=== PATIENT | female | born 1950 | race Two or more races ===

== ENCOUNTER → 2024-01-17 | Outpatient (CLI) | payer MEDICARE, MEDICAID, SELFPAY ==
--- NOTE | 2024-01-17 | XR_ITS ---
Examination: PA lateral chest 2 views TECHNIQUE: Upright PA lateral chest 2 views Exam date and time: January 17, 2024 1233 hours Comparison 11/11/2021 INDICATIONS: Fever nausea decreased appetite beginning 3 weeks ago, history coccidioidomycosis FINDINGS: Stable bilateral linear parenchymal scarring Minimal prominence left ventricle No interval pneumonia or pulmonary edema Severe osteopenia with chronic osteoporotic compressions thoracic vertebral bodies with to kyphoplasties IMPRESSION: No pneumonia identified
== END | disposition home or self-care (01) ==
PROVIDERS: PCP Nurse Practitioner Family; Referring Provider Nurse Practitioner Family; Visit Provider Nurse Practitioner Family
DX: R50.9 Fever, unspecified (principal)
CPT/HCPCS: 71046

== ENCOUNTER → 2024-03-11 | Outpatient (CLI) | payer MEDICARE, MEDICAID, SELFPAY ==
[2024-03-11 11:48] LABS: Alanine Aminotransferase 12 U/L (10-49); Albumin, Serum 4.2 gm/dL (3.4-4.8); Albumin/Globulin Ratio 1.6 (1.2-2.2); Alkaline Phosphatase 69 U/L (46-116); Anion Gap 8 (7-16); Aspartate Amino Transferase 23 U/L (0-34); BUN/Creatinine Ratio 23 Ratio (12-20); Bilirubin,Total 0.5 mg/dL (0.3-1.2); Blood Urea Nitrogen 23 mg/dL (9-23); Calcium 9.6 mg/dL (8.3-10.6); Calcium (Corrected) 9.6 mg/dL (8.5-10.1); Carbon Dioxide 30.6 mMol/L (20.0-31.0); Chloride 104 mMol/L (98-107); Globulin 2.6 gm/dL (2.3-3.5); Glucose 102 mg/dL (74-106); Osmolality,Calculated 288 (275-295); Phosphorous 2.7 mg/dL (2.4-5.1); Potassium 3.8 mMol/L (3.4-5.1); Sodium 143 mMol/L (136-145); Total Protein 6.8 gm/dL (5.7-8.2); eGFR 58 See Note
== END | disposition home or self-care (01) ==
LOC: COPL 10:37
PROVIDERS: PCP Nurse Practitioner Family; Referring Provider Physician Assistant Medical; Visit Provider Physician Assistant Medical
DX: E61.1 Iron deficiency (principal); E78.00 Pure hypercholesterolemia, unspecified; M48.54XS Collapsed vertebra, not elsewhere classified, thoracic region, sequela of fracture; M48.57XS Collapsed vertebra, not elsewhere classified, lumbosacral region, sequela of fracture; M54.50 Low back pain, unspecified; M81.0 Age-related osteoporosis without current pathological fracture; Z98.0 Intestinal bypass and anastomosis status; Z98.84 Bariatric surgery status
CPT/HCPCS: 36415; 80053; 83735; 84100

== ENCOUNTER → 2024-03-26 | Outpatient (CLI) | payer MEDICARE, MEDICAID, SELFPAY ==
--- NOTE | 2024-03-26 10:37 | XR_ITS ---
Examination: PA lateral chest 2 views TECHNIQUE: Upright PA lateral chest 2 views Exam date and time: March 26, 2024 1126 hours Comparison January 17, 2024 INDICATIONS: Coughing beginning 5 days ago FINDINGS: Normal heart size Subsegmental atelectasis right and left lower lung zones Mild elevation right hemidiaphragm Severe osteopenia stable compression fractures, chronic dorsal vertebral bodies with kyphoplasty No pneumonia or pulmonary edema IMPRESSION: Bilateral subsegmental atelectasis No pneumonia or pulmonary edema
== END | disposition home or self-care (01) ==
PROVIDERS: PCP Nurse Practitioner Family; Referring Provider Nurse Practitioner Family; Visit Provider Nurse Practitioner Family
DX: J98.11 Atelectasis (principal)
CPT/HCPCS: 71046

== ENCOUNTER → 2024-04-18 | Outpatient (CLI) | payer MEDICARE, MEDICAID, SELFPAY ==
--- NOTE | 2024-04-18 10:13 | XR_ITS ---
Examination: Knee, right , 3 views Technique: Knee AP, lateral, oblique 3 views Date and time of exam: April 18, 2024 1110 hours INDICATIONS: Right knee pain beginning one week ago. FINDINGS: Moderate osteopenia. Total right knee arthroplasty. Satisfactory alignment. No loosening of the prosthetic components. No fracture IMPRESSION: Total right knee arthroplasty with satisfactory alignment
[2024-04-18 12:58] LABS: Basophils % (Auto) 0 % (0-2.5); Eosinophils # (Auto) 0.1 Thou/mm3 (0.0-0.5); Eosinophils % (Auto) 2 % (0-10); Hematocrit 39.1 % (36.0-46.0); Immature Granulocytes % (Auto) 0 % (0-0); Immature Granulocytes Auto 0.02 Thou/mm3 (0.00-0.00); Lymphocytes # (Auto) 1.8 Thou/mm3 (1.0-4.8); Lymphocytes % (Auto) 24 % (10-50); Mean Corpuscular HGB Conc 33.2 g/dl (31.0-37.0); Mean Corpuscular Hemoglobin 27.7 pg (25.0-35.0); Mean Corpuscular Volume 83 fL (80-100); Monocytes # (Auto) 0.6 Thou/mm3 (0.0-0.8); Monocytes % (Auto) 8 % (0-12); Neutrophils % (Auto) 66 % (37-80); Nucleated Red Blood Cell % 0 /100 WBC (0); Platelet Count 293 Thou/mm3 (140-440); RDW Standard Deviation 43.7 fL (36.4-46.3); White Blood Count 7.6 Thou/mm3 (3.6-11.0)
[2024-04-18 13:03] LABS: Glucose Estimated Average 117 mg/dL (80-131); Hemoglobin A1C 5.7 % Hgb (4.8-6.0)
[2024-04-18 13:12] LABS: Alanine Aminotransferase 12 U/L (10-49); Albumin, Serum 4.1 gm/dL (3.4-4.8); Albumin/Globulin Ratio 1.6 (1.2-2.2); Alkaline Phosphatase 62 U/L (46-116); Anion Gap 9 (7-16); Aspartate Amino Transferase 19 U/L (0-34); BUN/Creatinine Ratio 15 Ratio (12-20); Bilirubin,Total 0.9 mg/dL (0.3-1.2); Blood Urea Nitrogen 16 mg/dL (9-23); Calcium 9.3 mg/dL (8.3-10.6); Calcium (Corrected) 9.3 mg/dL (8.5-10.1); Cardiac Risk Estimate 4.5 RATIO (3.7-5.6); Chloride 105 mMol/L (98-107); Cholesterol 139 mg/dL (132-200); Creatinine (Component) 1.1 mg/dL (0.6-1.3); Globulin 2.6 gm/dL (2.3-3.5); Glucose 103 mg/dL (74-106); HDL Cholesterol 31 mg/dL (40-60); LDL Cholesterol,Calculated 85 mg/dL (0-130); Osmolality,Calculated 282 (275-295); Potassium 3.4 mMol/L (3.4-5.1); Sodium 141 mMol/L (136-145); Total Protein 6.7 gm/dL (5.7-8.2); Triglycerides 116 mg/dL (30-150); eGFR 52 See Note
[2024-04-18 13:15] LABS: Vitamin D 25 Hydroxy Total 78.6 ng/mL (7.3-40.2)
[2024-04-18 13:17] LABS: Ferritin 105 ng/mL (7.3-270.7); Iron 38 mcg/dL (50-170); Percent Iron Saturation 13 % (20-55); Total Iron Binding Capacity 280 mcg/dL (250-425); Unsaturated Iron Binding 242 (225-295)
== END | disposition home or self-care (01) ==
LOC: CDIM 09:58 → COPL 11:26
PROVIDERS: Referring Provider Nurse Practitioner Family; Visit Provider Radiology Diagnostic Radiology
DX: M25.561 Pain in right knee (principal); Z96.651 Presence of right artificial knee joint; R73.03 Prediabetes; E55.9 Vitamin D deficiency, unspecified; Z13.89 Encounter for screening for other disorder; Z13.220 Encounter for screening for lipoid disorders
CPT/HCPCS: 36415; 73562; 80053; 80061; 82306; 82728; 83036; 83540; 83550; 85025

== ENCOUNTER → 2024-05-07 | Outpatient (CLI) | payer MEDICARE, MEDICAID, SELFPAY ==
--- NOTE | 2024-05-07 10:30 | XR_ITS ---
EXAMINATION: MR knee RT wo con ORDERING PROVIDER: Zahida Morales NP HISTORY: Diffuse right knee pain x6 weeks radiating down leg with walking, numbness, tingling, and swelling. TECHNIQUE: Multiplanar multisequence magnetic resonance images were obtained of the right knee without contrast. Institutional metal reduction protocols were utilized. COMPARISON: 04/18/2024, right knee radiographs. FINDINGS: Status post right knee arthroplasty. Significant metal susceptibility artifact limits evaluation. Medial and lateral supporting structures are grossly intact. There is a mild amount of increased signal within the distal quadriceps tendon in the setting of known small enthesophytes. No large fluid collections are identified. Bone marrow signal is grossly unremarkable. There is some mild to moderate muscular atrophy, with fatty infiltration. Surrounding soft tissues are otherwise within normal limits. IMPRESSION: 1. Status post knee arthroplasty with metal susceptibility artifact. 2. Mild quadriceps tendinopathy in the setting of known enthesophytes.
== END | disposition home or self-care (01) ==
LOC: SMRI 10:00
PROVIDERS: PCP Nurse Practitioner Family; Referring Provider Nurse Practitioner Family; Visit Provider Nurse Practitioner Family
DX: M25.561 Pain in right knee (principal); Z96.651 Presence of right artificial knee joint
CPT/HCPCS: 73721

== ENCOUNTER → 2024-07-05 | Outpatient (CLI) | payer MEDICARE, MEDICAID, SELFPAY ==
[2024-07-05 10:29] LABS: Alanine Aminotransferase 8 U/L (10-49); Albumin, Serum 4.2 gm/dL (3.4-4.8); Albumin/Globulin Ratio 1.8 (1.2-2.2); Alkaline Phosphatase 65 U/L (46-116); Anion Gap 8 (7-16); Aspartate Amino Transferase 17 U/L (0-34); BUN/Creatinine Ratio 15 Ratio (12-20); Bilirubin,Total 0.6 mg/dL (0.3-1.2); Blood Urea Nitrogen 20 mg/dL (9-23); Carbon Dioxide 28.8 mMol/L (20.0-31.0); Chloride 106 mMol/L (98-107); Creatinine (Component) 1.3 mg/dL (0.6-1.3); Globulin 2.4 gm/dL (2.3-3.5); Glucose 101 mg/dL (74-106); Osmolality,Calculated 287 (275-295); Potassium 3.8 mMol/L (3.4-5.1); Sodium 143 mMol/L (136-145); Total Protein 6.6 gm/dL (5.7-8.2); eGFR 43 See Note
== END | disposition home or self-care (01) ==
LOC: COPL 08:59
PROVIDERS: PCP Nurse Practitioner Family; Referring Provider Physician Assistant Medical; Visit Provider Physician Assistant Medical
DX: E61.1 Iron deficiency (principal); E78.00 Pure hypercholesterolemia, unspecified; M81.0 Age-related osteoporosis without current pathological fracture; Z98.0 Intestinal bypass and anastomosis status; Z98.84 Bariatric surgery status
CPT/HCPCS: 36415; 80053

== ENCOUNTER → 2024-09-02 | Outpatient (CLI) | payer MEDICARE, MEDICAID, SELFPAY ==
--- NOTE | 2024-09-02 10:10 | XR_ITS ---
Examination: Cervical spine 3 views Technique one AP lateral coned AP odontoid cervical spine 3 views Date and time: September 02, 2024 1018 hours INDICATIONS: Neck pain one week. FINDINGS: Adequate alignment cervical vertebral bodies. No cervical fracture. Intact odontoid. Severe osteopenia. Moderate degenerative disc disease C5-C6, C6-C7 IMPRESSION: Moderate degenerative disc disease C5-C6, C6-C7
== END | disposition home or self-care (01) ==
PROVIDERS: PCP Nurse Practitioner Family; Referring Provider Nurse Practitioner Family; Visit Provider Nurse Practitioner Family
DX: M50.322 Other cervical disc degeneration at C5-C6 level (principal)
CPT/HCPCS: 72040

== ENCOUNTER → 2024-09-27 | Outpatient (CLI) | payer MEDICARE, MEDICAID, SELFPAY ==
[2024-09-27 15:38] LABS: Basophils # (Auto) 0.0 Thou/mm3 (0.0-0.2); Basophils % (Auto) 1 % (0-2.5); Eosinophils # (Auto) 0.2 Thou/mm3 (0.0-0.5); Eosinophils % (Auto) 4 % (0-10); Hematocrit 38.8 % (36.0-46.0); Hemoglobin 12.6 g/dL (12.0-16.0); Immature Granulocytes Auto 0.01 Thou/mm3 (0.00-0.00); Lymphocytes # (Auto) 1.2 Thou/mm3 (1.0-4.8); Lymphocytes % (Auto) 23 % (10-50); Mean Corpuscular HGB Conc 32.5 g/dl (31.0-37.0); Mean Corpuscular Hemoglobin 28.3 pg (25.0-35.0); Mean Corpuscular Volume 87 fL (80-100); Monocytes # (Auto) 0.5 Thou/mm3 (0.0-0.8); Monocytes % (Auto) 10 % (0-12); Neutrophils # (Auto) 3.4 Thou/mm3 (1.8-7.7); Neutrophils % (Auto) 63 % (37-80); Nucleated Red Blood Cell # 0.00 Thou/mm3 (0.00-0.00); Nucleated Red Blood Cell % 0 /100 WBC (0); Platelet Count 357 Thou/mm3 (140-440); RDW Standard Deviation 44.9 fL (36.4-46.3); Red Blood Count 4.46 Miln/mm3 (4.00-5.20); White Blood Count 5.5 Thou/mm3 (3.6-11.0)
[2024-09-27 16:59] LABS: Alanine Aminotransferase 8 U/L (10-49); Albumin, Serum 4.1 gm/dL (3.4-4.8); Albumin/Globulin Ratio 1.5 (1.2-2.2); Alkaline Phosphatase 77 U/L (46-116); Anion Gap 13 (7-16); Aspartate Amino Transferase 21 U/L (0-34); BUN/Creatinine Ratio 16 Ratio (12-20); Bilirubin,Total 0.5 mg/dL (0.3-1.2); Blood Urea Nitrogen 19 mg/dL (9-23); Calcium 9.4 mg/dL (8.3-10.6); Calcium (Corrected) 9.4 mg/dL (8.5-10.1); Carbon Dioxide 25.5 mMol/L (20.0-31.0); Chloride 104 mMol/L (98-107); Creatinine (Component) 1.2 mg/dL (0.6-1.3); Globulin 2.7 gm/dL (2.3-3.5); Glucose 95 mg/dL (74-106); Osmolality,Calculated 285 (275-295); Potassium 3.8 mMol/L (3.4-5.1); Sodium 142 mMol/L (136-145); Total Protein 6.8 gm/dL (5.7-8.2); eGFR 47 See Note
== END | disposition home or self-care (01) ==
LOC: COPL 14:15
PROVIDERS: PCP Family Medicine; Referring Provider Physician Assistant Medical; Visit Provider Physician Assistant Medical
DX: M81.0 Age-related osteoporosis without current pathological fracture (principal); Z79.899 Other long term (current) drug therapy
CPT/HCPCS: 36415; 80053; 85025

== ENCOUNTER → 2024-12-10 | Outpatient (CLI) | payer MEDICARE, MEDICAID, SELFPAY ==
[2024-12-10 13:00] LABS: Misc Send Out* See Sep Rpt
[2024-12-10 13:59] LABS: Basophils # (Auto) 0.0 Thou/mm3 (0.0-0.2); Basophils % (Auto) 0 % (0-2.5); Eosinophils # (Auto) 0.1 Thou/mm3 (0.0-0.5); Eosinophils % (Auto) 2 % (0-10); Hematocrit 39.2 % (36.0-46.0); Hemoglobin 12.2 g/dL (12.0-16.0); Immature Granulocytes Auto 0.01 Thou/mm3 (0.00-0.00); Lymphocytes # (Auto) 1.4 Thou/mm3 (1.0-4.8); Lymphocytes % (Auto) 27 % (10-50); Mean Corpuscular HGB Conc 31.1 g/dl (31.0-37.0); Mean Corpuscular Hemoglobin 28.2 pg (25.0-35.0); Mean Corpuscular Volume 91 fL (80-100); Monocytes # (Auto) 0.4 Thou/mm3 (0.0-0.8); Monocytes % (Auto) 8 % (0-12); Neutrophils # (Auto) 3.1 Thou/mm3 (1.8-7.7); Neutrophils % (Auto) 62 % (37-80); Nucleated Red Blood Cell # 0.00 Thou/mm3 (0.00-0.00); Nucleated Red Blood Cell % 0 /100 WBC (0); Platelet Count 299 Thou/mm3 (140-440); RDW Standard Deviation 46.2 fL (36.4-46.3); Red Blood Count 4.33 Miln/mm3 (4.00-5.20); White Blood Count 5.0 Thou/mm3 (3.6-11.0)
[2024-12-10 14:30] LABS: Anion Gap 11 (7-16); BUN/Creatinine Ratio 16 Ratio (12-20); Blood Urea Nitrogen 16 mg/dL (9-23); Carbon Dioxide 30.6 mMol/L (20.0-31.0); Chloride 101 mMol/L (98-107); Creatinine (Component) 1.0 mg/dL (0.6-1.3); Glucose 85 mg/dL (74-106); Potassium 3.4 mMol/L (3.4-5.1); Sodium 143 mMol/L (136-145); eGFR 58 See Note
[2024-12-10 14:31] LABS: Alanine Aminotransferase 8 U/L (10-49); Albumin, Serum 4.1 gm/dL (3.4-4.8); Albumin/Globulin Ratio 1.8 (1.2-2.2); Alkaline Phosphatase 61 U/L (46-116); Aspartate Amino Transferase 20 U/L (0-34); Bilirubin,Total 0.3 mg/dL (0.3-1.2); Calcium 9.1 mg/dL (8.3-10.6); Calcium (Corrected) 9.1 mg/dL (8.5-10.1); Globulin 2.3 gm/dL (2.3-3.5); Osmolality,Calculated 285 (275-295); Total Protein 6.4 gm/dL (5.7-8.2)
== END | disposition home or self-care (01) ==
LOC: COPL 12:43
PROVIDERS: PCP Nurse Practitioner Family; Referring Provider Internal Medicine; Visit Provider Internal Medicine
DX: M54.50 Low back pain, unspecified (principal); M81.0 Age-related osteoporosis without current pathological fracture; Z79.899 Other long term (current) drug therapy
CPT/HCPCS: 36415; 80053; 85025

== ENCOUNTER 2025-01-07 21:57 | Emergency (ER) | payer MEDICARE, MEDICAID, SELFPAY ==
[2025-01-07 21:58] VITALS: BMI 26.9
[2025-01-07 23:03] VITALS: BP 136/76; PULSE 70; RESP 20; TEMP 36.6; O2SAT 95
--- NOTE | 2025-01-07 23:14 | XR_ITS ---
Examination: CT abdomen and pelvis without contrast. Coronal 3-D reconstructions. Sagittal 2-D reconstructions. Date and time of exam: January 08, 2025, 0052 hours, comparison May 18, 2020 INDICATIONS: Left-sided flank pain onset today CTDI: vol (mGy): 8.39 DLP: (mGycm): 441 Technique: Axial images of the abdomen have been obtained, 3 mm slice thickness Intravenous contrast material has not been administered. Low dose protocols were performed. One or more of the following dose reduction techniques were used; automated exposure control, adjustment of the mA and/or KV according to patient size, use of iterative reconstruction technique. Findings: Mitral valvular calcification No focal liver or splenic lesion Absent gallbladder No pancreatic or adrenal mass Moderate renal parenchymal scar formation 1 to 2 mm bilateral renal calculi, no hydronephrosis or ureteral calculi Aorta normal size Normal appendix No bowel obstruction No diverticulitis Absent uterus No pelvic mass No bladder calculi Severe osteopenia with chronic osteoporotic compressions L1 T12, T7 kyphoplasties T12 T7 IMPRESSION: Tiny nonobstructing bilateral renal calculi, no hydronephrosis or ureteral calculi
--- NOTE | 2025-01-07 23:15 | PD.EDRME ---
Rapid Medical Screening Exam RME Arrival date/time: 01/07/25 21:57 Chief Complaint: Abdominal Pain Time Seen by Provider: 01/07/25 22:30 Vital signs: Vital Signs Temperature 98 F 01/07/25 23:03 Pulse Rate 70 01/07/25 23:03 Respiratory Rate 20 01/07/25 23:03 Blood Pressure 136/76 H 01/07/25 23:03 Pulse Oximetry (%) 95 01/07/25 23:03 Oxygen Delivery Method Room Air 01/07/25 23:03 RME Narrative: 74-year-old female complaining of left lower quadrant pain since last night. I briefly performed a screening evaluation to initiate work-up and expedite care. Complete history, physical exam, and plan of care is deferred to the provider in the main ED. Exam: Constitutional: Vital Signs Reviewed. Well appearing. No acute distress. Not toxic appearing. Head: Normocephalic, atraumatic. Eyes: Conjunctiva clear. ENT: Mucous membranes moist. Neck: Trachea midline. Normal range of motion. No nuchal rigidity. Respiratory: Normal effort. No respiratory distress or accessory muscle use. Neuro: Alert and oriented. Speech normal. No focal gross motor or sensory deficits observed. Skin: Warm, dry, normal color. Psych: Pleasant. Normal affect. Cooperative. Clinical Impression: Abdominal pain unspecified
[2025-01-07] MEDS: ONDANSETRON ODT 4 MG TABRAP PO (23:21)
[2025-01-08 00:02] LABS: Collection Type, Urine Voided
[2025-01-08 00:07] VITALS: BP 137/64; PULSE 80; RESP 19; TEMP 36.5; O2SAT 96
--- NOTE | 2025-01-08 00:09 | PD.EDABDPN ---
ED Abdominal Pain RME/HPI General Chief Complaint: Abdominal Pain Stated complaint: LEFT SIDED ABD PAIN Time seen by provider: 01/07/25 22:30 Arrival date/time: 01/07/25 21:57 RME / HPI RME / HPI narrative: 74-year-old female complaining of left lower quadrant pain since last night. I briefly performed a screening evaluation to initiate work-up and expedite care. Complete history, physical exam, and plan of care is deferred to the provider in the main ED. Dr. Ayala?s Main ED Evaluation: 74yo female with known history of DM, HTN, HLD presenting with epigastric pain that radiates to LUQ x 24 hours. It has been constant, waxing and weaning, and is described as pressure-like sensation. Patient has nausea, but no vomiting. No frequency, urgency, or dysuria. No fever or chills. No hematochezia or melena. PSH includes hysterectomy and cholecystectomy. Social history unremarkable. NKA. Related Data Home Medications ?Medication ?Instructions ?Recorded ?Confirmed pravastatin 10 mg tablet 10 mg PO HS ##0 07/12/13 06/08/20 cyclobenzaprine 10 mg tablet 10 mg PO HS #0 tabs 08/22/15 06/08/20 calcium carbonate (Calcium 600) 600 mg PO DAILY 07/13/18 06/08/20 cholecalciferol (vitamin D3) 125 5,000 unit PO QDAY 07/13/18 06/08/20 mcg (5,000 unit) tablet (Vitamin D3) meclizine 25 mg tablet 25 mg PO BID PRN Vertigo 07/13/18 06/08/20 sertraline 100 mg tablet 100 mg PO QDAY 07/13/18 06/08/20 hydrochlorothiazide 12.5 mg tablet 12.5 mg PO QDAY 05/08/19 06/08/20 atenolol 25 mg tablet 25 mg PO QDAY 05/09/19 06/08/20 loratadine 10 mg tablet 10 mg PO QDAY 05/09/19 06/08/20 diclofenac sodium 75 mg 75 mg PO BID 06/05/20 06/08/20 tablet,delayed release Previous Rx's ?Medication ?Instructions ?Recorded acetaminophen 300 mg-codeine 15 mg 1 tab PO Q8H PRN pain #14 tabs 01/08/25 tablet amoxicillin 500 mg-potassium 1 tab PO TID 10 days #30 tabs 01/08/25 clavulanate 125 mg tablet (Augmentin) promethazine 12.5 mg tablet 12.5 mg PO TID PRN nausea and 01/08/25 vomiting #14 tabs Allergies Allergy/AdvReac Type Severity Reaction Status Date / Time No Known Allergies Allergy Verified 01/07/25 21:58 Review of Systems Review of Systems Systems Reviewed: All systems reviewed, normal except as documented Past Medical History Past Medical History NEUROLOGIC: Negative Neurological Disorders or Seizures CARDIAC: Positive Cardiac Disorders, Hypercholesterolemia (PO MED), Hypertension (PO MED) and Varicose Veins; Negative Congestive Heart Failure or Edema RESPIRATORY: Negative Chronic Obstructive Pulmonary Disease (COPD), Tuberculosis or Sleep Apnea GASTROINTESTINAL: Positive Gastrointestinal Disorders and Gall Bladder Disease (LAP Zainab); Negative Hepatitis GENITOURINARY: Positive Genitourinary Disorders (Overactive bladder, urine leakage); Negative Renal Disease REPRODUCTIVE: Positive Previous Pregnancies () MUSCULOSKELETAL: Positive Musculoskeletal Disorders, Arthritis (generalized) and Degenerative Disk Disease ENDOCRINE: Positive Endocrine Disorders and Diabetes Mellitus Type 2 (Stopped Metformin 2016, diet controlled); Negative Diabetes Mellitus Type 1 HEMATOLOGIC: Negative Blood Disorders, Anemia, Leukemia, Hemophilia, Thalassemia, Sickle Cell Disease or Clotting Problems PSYCHO/SOCIAL: Positive Depression (PO MEDS) OTHER HISTORY: Positive Chicken Pox and Measles; Negative Hospitalization, Autoimmune Disease, Down Syndrome, Developmental Delay, Shingles, Falls, Blood Transfusions, Blood Transfusion Reaction, Anesthesia Reactions, Organ Transplant, Chemotherapy, Radiation Therapy, Hyperbaric Therapy, MRSA, VRSA, Vancomycin-Resistant Enterococci, Human Immunodeficiency Virus (HIV), Mumps, Rubella (Irish Measles), Pertussis, Clostridium Difficile or Cancer Family History FAMILY HISTORY: Positive Family Psychiatric Problems (Mother (Depression)), Family Cardiac Disorders (Mother (AR) Mother, Father (HTN)), Family Cancer (Father (Bones)) and Family Surgery (Sister); Negative Family Respiratory Disorders, Family Gastrointestinal Problems or Family Anesthesia Reaction Surgical History SURGICAL: Positive Abdominal Surgery, Joint Replacement (Bilateral Knees) and Tubal Ligation; Negative Organ Transplant Social History SMOKING STATUS: Never smoker SECOND HAND EXPOSURE: No ED Exam Narrative Physical exam: GENERAL APPEARANCE: alert and oriented x 4, well-developed, well-nourished, complains of LUQ pain, no acute distress VITALS: All vitals were reviewed and the pulse ox is 96% on room air, which is normal according to my interpretation. HEENT: Normocephalic, atraumatic; pupils equal, round, reactive to light; EOMI; mucous membranes pink, moist; oropharynx clear NECK: Supple LUNGS: CTABL; no wheezes, no rales, no rhonchi HEART: Regular rate, regular rhythm; normal S1, S2; no murmurs ABDOMEN: non distended; soft, LUQ tenderness with guarding EXTREMITIES: atraumatic; no edema NEUROLOGIC: awake; alert and oriented x4; cranial nerves II-XII grossly intact; no focal sensory or motor deficits PSYCHIATRIC: appropriate mood and affect SKIN: warm, dry, normal color; no rashes Course Quality Measures none Orders Category Date Time Status CT abdomen pelvis wo con Stat Exams 01/07/25 23:14 Taken CBC Stat Lab 01/07/25 23:26 Completed CMP [Comprehensive Metabolic Panel] Stat Lab 01/07/25 23:26 Completed Lipase Stat Lab 01/07/25 23:26 Completed UA, C/S IF [Urinalysis, C/S if Indicated] Stat Lab 01/07/25 23:50 Completed Urine Culture Stat Lab 01/07/25 23:50 Received Ampicillin/Sulbac Inj [Unasyn Inj] 3 gm Med 01/08/25 02:42 Ordered Sodium Chloride 0.9% (Pop) [NS 0.9% mini bag] 100 ml IV X1 Ondansetron Odt [Zofran Odt] Med 01/07/25 23:14 Discontinued 4 mg PO X1 ONE Vital Signs Vital signs: Vital Signs Temperature 98 F 01/07/25 23:03 Pulse Rate 70 01/07/25 23:03 Respiratory Rate 20 01/07/25 23:03 Blood Pressure 136/76 H 01/07/25 23:03 Pulse Oximetry (%) 95 01/07/25 23:03 Oxygen Delivery Method Room Air 01/07/25 23:03 Abdominal Pain MDM MDM Narrative MDM Narrative:: Scribe Attestation: 01/08/25 - Angelika Hull am scribing for and in the presence of Dr. Ayala. 74yo female with known history of DM, HTN, HLD presenting with epigastric pain that radiates to LUQ x 24 hours. It has been constant, waxing and weaning, and is described as pressure-like sensation. Please see PE findings. Labs including CBC and chemistries are unremarkable. UA with equivocal evidence of infection. This may partly explain patient's left flank pain. CT abdomen pelvis shows either contracted vs mildly inflamed anorectal region, possibly consistent with proctitis. Patient has been straining fairly frequently, but denies rectal pain. After extended period of observation, patient is considered stable for discharge. Patient will be treated empirically with Augmentin, antiemetics, and analgesics with close follow-up anticipated. Patient data External records reviewed:: [facility] previous records (Per chart review, patient has no relevant previous ED visits.) Clinical information provided by:: patient Social determinants that could affect healthcare access:: none Patient has the following chronic illnesses:: HTN, HLD How is presenting disease/condition affected by chronic disease/condition?: uneffected by Evaluation data The following diagnostics were reviewed and interpreted by me:: lab results and radiology exam(s) Lab and/or radiology exams considered but not ordered:: none Interpretation Summary: CT scan of the abdomen and pelvis without intravenous contrast (axial sections with sagittal and coronal reformats); January 08, 2025 , 00:51 hours ? Clinical History:?Flank pain. Comparison:?No prior study available for comparison at the time of interpretation. ? Findings: There are multiple 1-2 mm nonobstructing bilateral renal calculi. There is no ureteric calculus or hydroureteronephrosis. The gallbladder is surgically absent. The liver, spleen, adrenals, and pancreas are unremarkable on this noncontrast study. ? There are chronic postoperative changes in the stomach. No evidence of bowel obstruction. There is mild thickening versus underdistention of the anorectal junction/anal verge with mild adjacent fat stranding. The appendix is within normal limits (coronal images 78-82/141). The abdominal aorta demonstrates mild atheromatous changes.? ? The urinary bladder is partially distended and shows mild wall thickening; possibility of cystitis cannot be excluded. Calcific densities are seen in the pelvis, likely representing phleboliths. The uterus is surgically absent. No evidence of adnexal mass. There is no free fluid or free air. ? There is diffuse osteopenia. Degenerative changes are seen in the spine. There are chronic compression fractures of T11, T12, and T7 vertebral bodies with vertebroplasty changes. ? Subsegmental atelectasis is seen at the visualized lung bases with mild heterogeneous attenuation. There is no pleural effusion. ? Please note that evaluation of soft tissue/vascular structures and bowel loops is limited due to absence of IV and oral contrast. ? Impression: 1.?No evidence of acute appendicitis. 2.?Nonobstructing (1-2 mm) bilateral renal calculi. No ureteric calculus or hydroureteronephrosis. 3.?Mild thickening versus underdistention of the anorectal junction/anal verge with mild adjacent fat stranding, suspicious for inflammatory or infectious etiology. 4. Partially distended urinary bladder with mild wall thickening; possibility of cystitis cannot be excluded. 5. Other findings as described above This report has been electronically signed by: Klever Figueroa MD. Medications / Prescriptions Medications or Prescriptions considered but not ordered:: none Medication administrations:: Medication Administration History Ampicillin Sodium/Sulbactam (Sodium 3 gm/ Sodium Chloride) 100 mls @ 200 mls/hr IV X1 ONE Stop: 01/08/25 02:43 Discontinued Medications Ondansetron HCl (Ondansetron Odt 4 Mg Tabrap) 4 mg PO X1 ONE; Protocol Stop: 01/07/25 23:15 Last Admin: 01/07/25 23:21 Dose: 4 mg Documented By: see above Consultations Consultation(s) initiated? (list below): No Diagnosis Differential diagnosis abdominal pain: constipation, diverticulitis, pancreatitis and other (gastritis, GERD, kidney stone) Most likely diagnosis given after review of the tests above:: see clinical impression below Admission Indicated Admission indicated?: not indicated Admission Request Was there a request for admission?: No Disposition Plan Disposition Plan: Discharge Discharge Attestation Discharge Attestation: The patient and all family members were given an opportunity to ask questions and understood the discharge instructions. Discharge instructions specifically effects, indications for sooner follow up or return to the emergency department, and the expected course of current diagnosis. Patient condition: Stable Discharge Plan Plan Patient Disposition: HOME (Self Care) Discharge Disposition comment: Stable Prescriptions/Referrals Prescriptions/Med Rec: New amoxicillin-pot clavulanate [Augmentin] 500-125 mg tablet 1 tab PO TID 10 Days Qty: 30 0RF promethazine 12.5 mg tablet 12.5 mg PO TID PRN (Reason: nausea and vomiting) Qty: 14 0RF acetaminophen-codeine 300-15 mg tablet 1 tab PO Q8H PRN (Reason: pain) Qty: 14 0RF No Action pravastatin 10 mg Tablet 10 mg PO HS Qty: 0 cyclobenzaprine 10 mg Tablet 10 mg PO HS Qty: 0 diclofenac sodium 75 mg Tablet,Delayed Release (Dr/Ec) 75 mg PO BID sertraline 100 mg Tablet 100 mg PO QDAY calcium carbonate [Calcium 600] 600 mg calcium (1,500 mg) Tablet 600 mg PO DAILY meclizine 25 mg Tablet 25 mg PO BID PRN (Reason: Vertigo) cholecalciferol (vitamin D3) [Vitamin D3] 5,000 unit Tablet 5,000 unit PO QDAY hydrochlorothiazide 12.5 mg Tablet 12.5 mg PO QDAY atenolol 25 mg tablet 25 mg PO QDAY loratadine 10 mg Tablet 10 mg PO QDAY Referrals: Zahida Morales T[employer] CUTTER [Primary Care Provider] - In 1 week Problem List Clinical Impression: Acute UTI (urinary tract infection), Acute proctitis Patient/Caregiver Discharge Instructions Discharge Activity: activity as tolerated Education Materials: ED CYSTITIS Female Adult Additional Instructions: Force fluids/clear liquid diet for 24 to 48 hours and advance as tolerated. Medication as directed. Follow-up with primary care doctor in 5 to 7 days and return for fever persistent vomiting escalating abdominal pain or worsening illness. Print Language: Swedish Stand Alone Forms: [facility] Award Info., Patient Portal Info Letter
[2025-01-08 00:15] LABS: Bacteria,Urine Rare; Bilirubin,Urine Negative (Negative); Blood,Urine Negative (Negative); Clarity,Urine Clear (Clear/Hazy); Color,Urine Yellow (Lt Yel-Yel); Culture Indicated,Urine Yes; Glucose, Urine Negative (Negative); Ketones,Urine 1+ (Negative); Leukocyte Esterase,Urine Positive (Negative); Nitrite,Urine Negative (Negative); PH,Urine 7.5 (5.0-7.0); Protein,Urine Negative (Neg - Trace); RBC,Urine 10 /hpf (0-3); Specific Gravity,Urine 1.021 (1.001-1.035); Squamous Epithelial Cell,Urine 1 /hpf (0-5); Urobilinogen,Urine Negative mg/dL (0.0-1.0); WBC,Urine 48 /hpf (0-5)
[2025-01-08 00:23] LABS: Basophils # (Auto) 0.0 Thou/mm3 (0.0-0.2); Basophils % (Auto) 0 % (0-2.5); Eosinophils # (Auto) 0.1 Thou/mm3 (0.0-0.5); Eosinophils % (Auto) 1 % (0-10); Hematocrit 39.4 % (36.0-46.0); Hemoglobin 12.8 g/dL (12.0-16.0); Immature Granulocytes Auto 0.02 Thou/mm3 (0.00-0.00); Lymphocytes # (Auto) 1.3 Thou/mm3 (1.0-4.8); Lymphocytes % (Auto) 20 % (10-50); Mean Corpuscular HGB Conc 32.5 g/dl (31.0-37.0); Mean Corpuscular Hemoglobin 27.9 pg (25.0-35.0); Mean Corpuscular Volume 86 fL (80-100); Monocytes # (Auto) 0.5 Thou/mm3 (0.0-0.8); Monocytes % (Auto) 8 % (0-12); Neutrophils # (Auto) 4.7 Thou/mm3 (1.8-7.7); Neutrophils % (Auto) 71 % (37-80); Nucleated Red Blood Cell # 0.00 Thou/mm3 (0.00-0.00); Nucleated Red Blood Cell % 0 /100 WBC (0); Platelet Count 369 Thou/mm3 (140-440); RDW Standard Deviation 43.7 fL (36.4-46.3); Red Blood Count 4.58 Miln/mm3 (4.00-5.20); White Blood Count 6.6 Thou/mm3 (3.6-11.0)
[2025-01-08 00:25] LABS: Alanine Aminotransferase 9 U/L (10-49); Albumin, Serum 4.6 gm/dL (3.4-4.8); Albumin/Globulin Ratio 2.1 (1.2-2.2); Alkaline Phosphatase 58 U/L (46-116); Anion Gap 8 (7-16); Aspartate Amino Transferase 24 U/L (0-34); BUN/Creatinine Ratio 11 Ratio (12-20); Bilirubin,Total 0.6 mg/dL (0.3-1.2); Blood Urea Nitrogen 11 mg/dL (9-23); Calcium 9.0 mg/dL (8.3-10.6); Calcium (Corrected) 9.0 mg/dL (8.5-10.1); Carbon Dioxide 32.7 mMol/L (20.0-31.0); Chloride 101 mMol/L (98-107); Creatinine (Component) 1.0 mg/dL (0.6-1.3); Estimated Creatinine Clearance 39.5 mL/min (>60); Globulin 2.2 gm/dL (2.3-3.5); Glucose 113 mg/dL (74-106); Lipase 27 U/L (12-53); Osmolality,Calculated 283 (275-295); Potassium 3.0 mMol/L (3.4-5.1); Sodium 142 mMol/L (136-145); Total Protein 6.8 gm/dL (5.7-8.2); eGFR 58 See Note
--- NOTE | 2025-01-08 02:13 | PRELIM_ITS ---
CT scan of the abdomen and pelvis without intravenous contrast (axial sections with sagittal and coronal reformats); January 08, 2025 , 00:51 hours Clinical History: Flank pain. Comparison: No prior study available for comparison at the time of interpretation. Findings: There are multiple 1-2 mm nonobstructing bilateral renal calculi. There is no ureteric calculus or hydroureteronephrosis. The gallbladder is surgically absent. The liver, spleen, adrenals, and pancreas are unremarkable on this noncontrast study. There are chronic postoperative changes in the stomach. No evidence of bowel obstruction. There is mild thickening versus underdistention of the anorectal junction/anal verge with mild adjacent fat stranding. The appendix is within normal limits (coronal images 78-82/141). The abdominal aorta demonstrates mild atheromatous changes. The urinary bladder is partially distended and shows mild wall thickening; possibility of cystitis cannot be excluded. Calcific densities are seen in the pelvis, likely representing phleboliths. The uterus is surgically absent. No evidence of adnexal mass. There is no free fluid or free air. There is diffuse osteopenia. Degenerative changes are seen in the spine. There are chronic compression fractures of T11, T12, and T7 vertebral bodies with vertebroplasty changes. Subsegmental atelectasis is seen at the visualized lung bases with mild heterogeneous attenuation. There is no pleural effusion. Please note that evaluation of soft tissue/vascular structures and bowel loops is limited due to absence of IV and oral contrast. Impression: 1. No evidence of acute appendicitis. 2. Nonobstructing (1-2 mm) bilateral renal calculi. No ureteric calculus or hydroureteronephrosis. 3. Mild thickening versus underdistention of the anorectal junction/anal verge with mild adjacent fat stranding, suspicious for inflammatory or infectious etiology. 4. Partially distended urinary bladder with mild wall thickening; possibility of cystitis cannot be excluded. 5. Other findings as described above. Suggest clinical correlation and follow up accordingly. Report Electronically Signed By: Klever Ignacio 01/08/2025 2:12:17 AM [EST]
[2025-01-08 02:21] VITALS: BP 137/64; PULSE 77; RESP 20; TEMP 36.4; O2SAT 98
[2025-01-08] MEDS: MORPHINE SULF INJ 4 MG/ML VIAL IVP (03:14)
[2025-01-08] MEDS: AMPICILLIN/SULBAC INJ 3 GM in SODIUM CHLORIDE 0.9% (POP) 100 ML IV (03:27)
[2025-01-08 04:07] VITALS: BP 137/64; PULSE 75; RESP 23; TEMP 36.3; O2SAT 100
== END 2025-01-08 04:10 | disposition home or self-care (01) ==
PROVIDERS: Physician Assistant; Emergency Provider Emergency Medicine; PCP Nurse Practitioner Family
DX: N39.0 Urinary tract infection, site not specified (principal); K62.89 Other specified diseases of anus and rectum; E11.9 Type 2 diabetes mellitus without complications; I10 Essential (primary) hypertension; E78.5 Hyperlipidemia, unspecified; Z90.710 Acquired absence of both cervix and uterus; N20.0 Calculus of kidney
CPT/HCPCS: 36415; 74176; 80053; 81001; 83690; 85025; 87086; 96365; 96375; 99284; J0295; J2270; J3490; Q0162